=== PATIENT | male | born 1970 | race Caucasian/White ===

== ENCOUNTER 2022-03-10 00:25 | Emergency (ER) | payer BC, OTHER ==
[~2022-03-10] VITALS: Ht 180.3 cm; Wt 106.6 kg
--- NOTE | 2022-03-10 00:55 | NUR ---
Dr. Wei at bedside for MSE.
--- NOTE | 2022-03-10 01:47 | NUR ---
Patient discharged to home in stable condition. Written and verbal after care instructions given. Patient verbalizes understanding of instructions. Stressed follow up or return to ER for worsening s/s. Patient out of ER with steady gait, no acute signs of distress, VSS, all belongings taken.
[2022-03-10 01:48] VITALS: BP 145/82
== END 2022-03-10 01:50 | disposition home or self-care (01) ==
LOC: ER 01:18
DX: S67.193A Crushing injury of left middle finger, initial encounter (principal); W23.0XXA Caught, crushed, jammed, or pinched between moving objects, initial encounter; Y93.F9 Activity, other caregiving; Y92.230 Patient room in hospital as the place of occurrence of the external cause; Y99.0 Civilian activity done for income or pay; E11.9 Type 2 diabetes mellitus without complications; H91.90 Unspecified hearing loss, unspecified ear; Z88.0 Allergy status to penicillin; R03.0 Elevated blood-pressure reading, without diagnosis of hypertension
CPT/HCPCS: 73140; A4663

== ENCOUNTER 2024-05-28 05:49 | Inpatient (IN) | payer OTHER ==
[~2024-05-28] VITALS: Ht 180.3 cm; Wt 88.5 kg
[2024-05-28] MEDS ORDERED: VANCOMYCIN IV 500 MG in IV DEXTROSE 5% 100 ML IV ONE (06:45)
[2024-05-28] MEDS ORDERED: VANCOMYCIN IV 200 ML ONE (06:46)
[2024-05-28 06:53] LABS: BASOPHILS # (AUTO) 0.1 K/UL (0.0-0.2); BASOPHILS % (AUTO) 1.1 % (0.0-2.0); EOSINOPHILS # (AUTO) 0.3 K/uL (0.0-0.7); EOSINOPHILS % (AUTO) 2.6 % (0.0-7.0); HEMATOCRIT 42.7 % (36.7-47.1); HEMOGLOBIN 14.4 g/dL (12.5-16.3); LYMPHOCYTES # (AUTO) 2.8 K/uL (0.8-4.8); MEAN CORPUSCULAR HEMOGLOBIN 29.6 uug (23.8-33.4); MEAN CORPUSCULAR HGB CONC 34 g/dL (32.5-36.3); MEAN CORPUSCULAR VOLUME 87.9 fL (73.0-96.2); MONOCYTES % (AUTO) 8.7 % (0.0-11.0); NEUTROPHILS % (AUTO) 62.6 % (38.5-71.5); PLATELET COUNT (AUTO) 389 K/uL (152-348); RED BLOOD CELL COUNT(AUTO) 4.85 MIL/uL (4.06-5.63); RED CELL DISTRIBUTION WIDTH 13.1 % (12.1-16.2); WHITE BLOOD COUNT (AUTO) 11.1 K/uL (3.6-10.2)
[2024-05-28] MEDS: VANCOMYCIN IV 1,000 MG in IV DEXTROSE 5% 250 ML IV ONE (07:02)
[2024-05-28 07:13] LABS: ALBUMIN 3.2 g/dL (3.4-5.0); BILIRUBIN,TOTAL 0.3 mg/dL (0.2-1.0); CALCIUM 9.9 mg/dL (8.5-10.1); CREATININE 0.9 mg/dL (0.6-1.3); POTASSIUM 4.4 mmol/L (3.5-5.1)
[2024-05-28] MEDS ORDERED: DOXYCYCLINE HYCLATE 100 MG TABLET ONE (07:16)
[2024-05-28] MEDS: DOXYCYCLINE HYCLATE 100 MG TABLET PO ONE (07:17)
[2024-05-28] MEDS ORDERED: IOHEXOL 300MG/ML 100 ML INFUS..BTL ONE (07:22)
[2024-05-28] MEDS ORDERED: SWABABLE VALVE TRANSFER SET EA MC ONE (07:22)
[2024-05-28] MEDS ORDERED: IV NORMAL SALINE 250 ML IV ONE (07:22)
[2024-05-28 07:40] LABS: C-REACTIVE PROTEIN 1.25 mg/dL (0.00-0.30)
[2024-05-28 07:42] LABS: DIFFERENTIAL COMMENT 1
[2024-05-28 08:03] LABS: LACTIC ACID 2.1 mmol/L (0.4-2.0)
[2024-05-28] MEDS ORDERED: METFORMIN HCL 500 MG TABLET PO ONE (08:15)
[2024-05-28] MEDS ORDERED: METFORMIN HCL 500 MG TABLET ONE (08:25)
[2024-05-28] MEDS: IV NORMAL SALINE 1000 ML BAG IV ONE (08:57)
[2024-05-28] MEDS: HUM INSULIN NPH/REG INSULIN HM 70/30 1000 UNITS/10 ML VIAL SQ ONE (09:22)
[2024-05-28] MEDS ORDERED: ONDANSETRON 4 MG/2 ML VIAL IV PRN (10:30)
[2024-05-28] MEDS ORDERED: REMEDY ESSENTIAL ZINC PASTE 113 GM TP PRN (10:30)
[2024-05-28] MEDS ORDERED: DEXTROSE 50% 50 ML DISP.SYRIN IV PRN (10:30)
[2024-05-28] MEDS ORDERED: ACETAMINOPHEN 325 MG TABLET PO PRN (10:30)
[2024-05-28] MEDS ORDERED: MAGNESIUM HYDROXIDE 30 ML LIQUID UDC PO PRN (10:30)
[2024-05-28 11:09] VITALS: BP 141/87; TEMP 97.7; O2SAT 97
[2024-05-28] MEDS: BLOOD SUGAR DIAGNOSTIC 1 EACH STRIP VI SCH (11:39)
[2024-05-28] MEDS: IV NS 1000 ML 1,000 ML IV PRN (11:40)
[2024-05-28] MEDS: INSULIN REGULAR, HUMAN 300 UNIT/3 ML VIAL SQ PRN (11:49)
[2024-05-28] MEDS: HYDROCODONE/APAP 10-325 MG TABLET PO PRN (12:16)
[2024-05-28] MEDS: CEFEPIME HCL 1 G in IV DEXTROSE 5% 50 ML IV SCH (14:11)
[2024-05-28 16:06] VITALS: BP 120/62; TEMP 97.5; O2SAT 98
[2024-05-28] MEDS: SODIUM HYPOCHLORITE 0.125% (QUARTER STRENGTH) 473 ML BOTTLE TP SCH (16:14)
[2024-05-28] MEDS ORDERED: PIPERACILLIN SODIUM/TAZOBACTAM 3.375 G in IV DEXTROSE 5% 50 ML IV SCH (18:00)
[2024-05-28 19:46] VITALS: BP 128/79; TEMP 98; O2SAT 96
[2024-05-29 05:40] VITALS: BP 146/92; TEMP 97.9; O2SAT 97
[2024-05-29 07:26] LABS: BASOPHILS # (AUTO) 0.1 K/UL (0.0-0.2); BASOPHILS % (AUTO) 0.7 % (0.0-2.0); EOSINOPHILS # (AUTO) 0.2 K/uL (0.0-0.7); EOSINOPHILS % (AUTO) 2.6 % (0.0-7.0); HEMATOCRIT 41.7 % (36.7-47.1); HEMOGLOBIN 14.1 g/dL (12.5-16.3); LYMPHOCYTES # (AUTO) 2.6 K/uL (0.8-4.8); LYMPHOCYTES % (AUTO) 28.5 % (20.5-51.5); MEAN CORPUSCULAR HEMOGLOBIN 29.6 uug (23.8-33.4); MEAN CORPUSCULAR HGB CONC 34 g/dL (32.5-36.3); MEAN CORPUSCULAR VOLUME 87.3 fL (73.0-96.2); MONOCYTES # (AUTO) 0.7 K/uL (0.1-1.30); MONOCYTES % (AUTO) 7.4 % (0.0-11.0); NEUTROPHILS # (AUTO) 5.5 K/uL (1.8-8.9); NEUTROPHILS % (AUTO) 60.8 % (38.5-71.5); PLATELET COUNT (AUTO) 374 K/uL (152-348); RED BLOOD CELL COUNT(AUTO) 4.78 MIL/uL (4.06-5.63); WHITE BLOOD COUNT (AUTO) 9.1 K/uL (3.6-10.2)
[2024-05-29 07:35] LABS: DIFFERENTIAL COMMENT 1
[2024-05-29 07:38] LABS: CALCIUM 9.2 mg/dL (8.5-10.1); CREATININE 0.7 mg/dL (0.6-1.3); PHOSPHOROUS 2.9 mg/dL (2.5-4.9); POTASSIUM 3.3 mmol/L (3.5-5.1)
[2024-05-29] MEDS: POTASSIUM CHLORIDE 20 MEQ TAB.PRT.SR PO ONE (10:53)
[2024-05-29 11:30] VITALS: BP 137/74; TEMP 98.2; O2SAT 96
[2024-05-29 15:38] VITALS: BP 133/74; TEMP 98.5; O2SAT 95
[2024-05-29 16:54] LABS: CALCIUM 9.3 mg/dL (8.5-10.1); CREATININE 0.8 mg/dL (0.6-1.3); MAGNESIUM 2.1 mg/dL (1.8-2.4); PHOSPHOROUS 3.2 mg/dL (2.5-4.9); POTASSIUM 3.6 mmol/L (3.5-5.1); URIC ACID 4.7 mg/dL (3.5-7.2)
[2024-05-29 17:03] LABS: THYROID STIMULATING HORMONE 1.106 mIU/mL (0.358-3.740)
[2024-05-29 20:00] VITALS: BP 121/43; TEMP 97.9; O2SAT 95
[2024-05-29] MEDS: SODIUM HYPOCHLORITE 0.125% (QUARTER STRENGTH) 473 ML BOTTLE TP SCH (20:47)
[2024-05-29 21:34] LABS: *SODIUM RNDM,URINE 143 mmol/L (40-220)
[2024-05-30 04:43] VITALS: BP 135/85; TEMP 97.4; O2SAT 98
[2024-05-30 07:24] LABS: BASOPHILS # (AUTO) 0.1 K/UL (0.0-0.2); BASOPHILS % (AUTO) 0.8 % (0.0-2.0); EOSINOPHILS # (AUTO) 0.3 K/uL (0.0-0.7); EOSINOPHILS % (AUTO) 3.8 % (0.0-7.0); HEMATOCRIT 41.7 % (36.7-47.1); HEMOGLOBIN 14.2 g/dL (12.5-16.3); LYMPHOCYTES # (AUTO) 2.8 K/uL (0.8-4.8); LYMPHOCYTES % (AUTO) 30.2 % (20.5-51.5); MEAN CORPUSCULAR HEMOGLOBIN 29.8 uug (23.8-33.4); MEAN CORPUSCULAR HGB CONC 34 g/dL (32.5-36.3); MEAN CORPUSCULAR VOLUME 87.8 fL (73.0-96.2); MONOCYTES # (AUTO) 0.8 K/uL (0.1-1.30); MONOCYTES % (AUTO) 8.3 % (0.0-11.0); NEUTROPHILS # (AUTO) 5.2 K/uL (1.8-8.9); NEUTROPHILS % (AUTO) 56.9 % (38.5-71.5); PLATELET COUNT (AUTO) 395 K/uL (152-348); RED BLOOD CELL COUNT(AUTO) 4.75 MIL/uL (4.06-5.63); WHITE BLOOD COUNT (AUTO) 9.1 K/uL (3.6-10.2)
[2024-05-30 07:29] LABS: DIFFERENTIAL COMMENT 1
[2024-05-30 07:44] LABS: CALCIUM 9.3 mg/dL (8.5-10.1); CREATININE 0.7 mg/dL (0.6-1.3); POTASSIUM 3.6 mmol/L (3.5-5.1)
[2024-05-30 11:23] VITALS: BP 122/67; TEMP 97.5; O2SAT 98
[2024-05-30 15:50] VITALS: BP 145/45; TEMP 97.9; O2SAT 95
[2024-05-30] MEDS: CEFEPIME HCL 2 GM in IV DEXTROSE 5% 100 ML IV SCH (17:05)
[2024-05-30 20:00] VITALS: BP 143/84; TEMP 98.9; O2SAT 96
[2024-05-30] MEDS: INSULIN REGULAR, HUMAN 300 UNITS/3 ML VIAL SQ PRN (21:07)
[2024-05-31 06:07] VITALS: BP 143/80; TEMP 98.5; O2SAT 95
[2024-05-31 07:06] LABS: BASOPHILS # (AUTO) 0.1 K/UL (0.0-0.2); BASOPHILS % (AUTO) 0.9 % (0.0-2.0); EOSINOPHILS # (AUTO) 0.3 K/uL (0.0-0.7); EOSINOPHILS % (AUTO) 3.2 % (0.0-7.0); HEMOGLOBIN 14.9 g/dL (12.5-16.3); LYMPHOCYTES # (AUTO) 2.7 K/uL (0.8-4.8); LYMPHOCYTES % (AUTO) 28.1 % (20.5-51.5); MEAN CORPUSCULAR HEMOGLOBIN 29.8 uug (23.8-33.4); MEAN CORPUSCULAR HGB CONC 34 g/dL (32.5-36.3); MEAN CORPUSCULAR VOLUME 87.8 fL (73.0-96.2); MONOCYTES # (AUTO) 0.7 K/uL (0.1-1.30); MONOCYTES % (AUTO) 6.8 % (0.0-11.0); PLATELET COUNT (AUTO) 399 K/uL (152-348); RED BLOOD CELL COUNT(AUTO) 5.01 MIL/uL (4.06-5.63); WHITE BLOOD COUNT (AUTO) 9.7 K/uL (3.6-10.2)
[2024-05-31 07:13] LABS: DIFFERENTIAL COMMENT 1
[2024-05-31 07:42] LABS: CALCIUM 9.1 mg/dL (8.5-10.1); CREATININE 0.9 mg/dL (0.6-1.3); POTASSIUM 3.8 mmol/L (3.5-5.1)
[2024-05-31] MEDS ORDERED: INSU100V7 SQ (10:11)
[2024-05-31] MEDS ORDERED: LINE600T15 PO (10:11)
[2024-05-31] MEDS ORDERED: SYRI-614 SUBCUT (10:11)
[2024-05-31] MEDS ORDERED: [UNRECOGNIZED DRUG - CODE] MC (10:11)
[2024-05-31] MEDS ORDERED: ISOP1TOW MC (10:11)
[2024-05-31] MEDS ORDERED: METF-440 PO (10:11)
[2024-05-31] MEDS ORDERED: [UNRECOGNIZED DRUG - CODE] TP (10:11)
[2024-05-31] MEDS ORDERED: POVI30SO OP (10:49)
[2024-05-31] MEDS ORDERED: BISM1BAN TP (10:49)
[2024-05-31] MEDS ORDERED: SODI473S8 MC (10:49)
[2024-05-31] MEDS ORDERED: HYDR-3980 PO (14:49)
[2024-05-31] MEDS ORDERED: PROTEIN SUPPLEMENT (PROSTAT) 30 ML LIQUID PO SCH (17:00)
== END 2024-05-31 16:30 | disposition home health service (06) | DRG 580 ==
LOC: ER 06:01 → MEDSURG3 10:37
PROVIDERS: ADMIT Nurse Practitioner Acute Care; ATTEND Nurse Practitioner Acute Care
PROC: 0KBT0ZZ Excision of Left Lower Leg Muscle, Open Approach (ICD-10-PCS; principal; 2024-05-28)
DX: L03.116 Cellulitis of left lower limb (principal); E44.1 Mild protein-calorie malnutrition; E87.20 Acidosis, unspecified; E87.1 Hypo-osmolality and hyponatremia; L97.223 Non-pressure chronic ulcer of left calf with necrosis of muscle; E11.65 Type 2 diabetes mellitus with hyperglycemia; L02.416 Cutaneous abscess of left lower limb; E11.622 Type 2 diabetes mellitus with other skin ulcer; S80.862S Insect bite (nonvenomous), left lower leg, sequela; E11.621 Type 2 diabetes mellitus with foot ulcer; E87.6 Hypokalemia; L97.521 Non-pressure chronic ulcer of other part of left foot limited to breakdown of skin; B95.61 Methicillin susceptible Staphylococcus aureus infection as the cause of diseases classified elsewhere; W57.XXXS Bitten or stung by nonvenomous insect and other nonvenomous arthropods, sequela; E11.42 Type 2 diabetes mellitus with diabetic polyneuropathy; E88.09 Other disorders of plasma-protein metabolism, not elsewhere classified; Z68.27 Body mass index [BMI] 27.0-27.9, adult; H91.93 Unspecified hearing loss, bilateral; Z91.148 Patient's other noncompliance with medication regimen for other reason; Z88.0 Allergy status to penicillin; Z79.84 Long term (current) use of oral hypoglycemic drugs; E86.9 Volume depletion, unspecified
CPT/HCPCS: 36415; 82533; 83605; 83735; 84100; 84300; 84443; 84550; 85025; 86140; 87040; A4663; G0378; J0692; J1815; J3370; J7040; Q9967

== ENCOUNTER 2025-09-14 19:32 | Inpatient (IN) | payer BC, OTHER ==
[~2025-09-14] VITALS: Ht 180.3 cm; Wt 74.8 kg
[2025-09-14 19:32] VITALS: BP 113/77
[~2025-09-14 19:32] MED LIST: BISM1BAN TP; HYDR-3980 PO; INSU100V7 SQ; ISOP1TOW MC; LINE600T15 PO; METF-440 PO; POVI30SO OP; SODI473S8 MC; SYRI-614 SUBCUT; [UNRECOGNIZED DRUG - CODE] MC; [UNRECOGNIZED DRUG - CODE] TP
[2025-09-14] MEDS ORDERED: LOSA50TA39 PO (20:28)
[2025-09-14] MEDS ORDERED: insulin SUBCUT (20:54)
[2025-09-14 21:06] LABS: *BILIRUBIN,URIN 1+ (NEGATIVE); *BLOOD, URINE NEGATIVE (NEGATIVE); *CLARITY,URINE CLEAR (CLEAR); *COLOR,URINE YELLOW (YELLOW); *KETONES,URINE 3+ (NEGATIVE); *PROTEIN,URINE 2+ (NEGATIVE); *UROBILINOGEN,URINE 0.2 E.U./dl (NORMAL); LEUKOCYTE ESTERASE ,URINE NEGATIVE (NEGATIVE); NITRITE, URINE NEGATIVE (NEGATIVE); UGLUCOSE 2+ (NEGATIVE)
[2025-09-14 21:13] LABS: CREATININE 1.0 mg/dL (0.6-1.3); SODIUM SERUM 130 mmol/L (136-145); UREA NITROGEN, BLOOD 22 mg/dL (7-18)
[2025-09-14 21:15] LABS: PLATELET COUNT (AUTO) 426 K/uL (152-348); RED BLOOD CELL COUNT(AUTO) 5.29 MIL/uL (4.06-5.63); RED CELL DISTRIBUTION WIDTH 13.2 % (12.1-16.2); WHITE BLOOD COUNT (AUTO) 25.5 K/uL (3.6-10.2)
[2025-09-14 21:18] LABS: TOTAL PROTEIN, SERUM 8.2 g/dL (6.4-8.2)
[2025-09-14 21:19] LABS: *AMPHETAMINE, URINE NEGATIVE (NEGATIVE); *BARBITURATE, URINE NEGATIVE (NEGATIVE); *BENZODIAZEPINE, URINE NEGATIVE (NEGATIVE); *CANNABINOID, URINE NEGATIVE (NEGATIVE); *COCCAINE, URINE NEGATIVE (NEGATIVE); *OPIATE, URINE NEGATIVE (NEGATIVE); *PHENCYCLIDINE SCREEN,URINE NEGATIVE (NEGATIVE); FENTANYL, URINE NEGATIVE (NEGATIVE)
[2025-09-14 21:29] LABS: ASPARTATE AMINOTRANSFERASE 9 U/L (15-37)
[2025-09-14 21:40] LABS: SQUAMOUS EPITHELIAL CELL,UR NONE SEEN /HPF (NONE SEEN)
[2025-09-14] MEDS ORDERED: MORPHINE SULFATE 4 MG/1 ML DISP.SYRIN ONE (22:06)
[2025-09-14] MEDS: MORPHINE SULFATE 4 MG/1 ML DISP.SYRIN IV ONE (22:12)
[2025-09-14] MEDS ORDERED: ONDANSETRON 4 MG/2 ML VIAL IV PRN (23:30)
[2025-09-14] MEDS ORDERED: MAGNESIUM HYDROXIDE 30 ML LIQUID UDC PO PRN (23:30)
[2025-09-14] MEDS ORDERED: DEXTROSE 50% 50 ML DISP.SYRIN IV PRN (23:30)
[2025-09-14] MEDS ORDERED: PIPERACILLIN/TAZOBACTAM/D5W 50 ML IV ONE (23:36)
[2025-09-14] MEDS: PIPERACILLIN SODIUM/TAZOBACTAM 3.375 G in IV DEXTROSE 5% 50 ML IV SCH (23:57)
[2025-09-14] MEDS: IV NS 1000 ML 1,000 ML IV ONE (23:57)
[2025-09-15] MEDS: IV NS 1000 ML 1,000 ML IV ONE
[2025-09-15 01:15] VITALS: BP 152/81; TEMP 100; O2SAT 98
[2025-09-15] MEDS: IV NS 1000 ML 1,000 ML IV PRN (01:27)
[2025-09-15] MEDS: ACETAMINOPHEN 325 MG TABLET PO PRN (01:41)
[2025-09-15] MEDS: ENOXAPARIN SODIUM 40 MG/0.4 ML DISP.SYRIN SQ SCH ×2 (01:50→20:17)
[2025-09-15] MEDS ORDERED: PIPERACILLIN/TAZOBACTAM/D5W 50 ML IV ONE (02:23)
[2025-09-15] MEDS ORDERED: VANCOMYCIN 1000 MG VIAL ONE (02:24)
[2025-09-15] MEDS ORDERED: VANCOMYCIN HCL 500 MG VIAL ONE (02:25)
[2025-09-15] MEDS: VANCOMYCIN IV 1,250 MG in IV NORMAL SALINE 250 ML IV ONE (02:38)
[2025-09-15] MEDS ORDERED: PIPERACILLIN SODIUM/TAZOBACTAM 3.375 G in IV NORMAL SALINE 50 ML IV ONE (04:00)
[2025-09-15 04:47] VITALS: BP 118/72; TEMP 98.6; O2SAT 95
[2025-09-15] MEDS: PIPERACILLIN SODIUM/TAZOBACTAM 3.375 G in IV NORMAL SALINE 50 ML IV ONE (05:00)
[2025-09-15] MEDS: BLOOD SUGAR DIAGNOSTIC 1 EACH STRIP VI SCH (06:32)
[2025-09-15 07:14] LABS: PLATELET COUNT (AUTO) 375 K/uL (152-348); RED BLOOD CELL COUNT(AUTO) 4.80 MIL/uL (4.06-5.63); RED CELL DISTRIBUTION WIDTH 12.9 % (12.1-16.2); WHITE BLOOD COUNT (AUTO) 22.6 K/uL (3.6-10.2)
[2025-09-15 07:40] LABS: CREATININE 0.8 mg/dL (0.6-1.3); SODIUM SERUM 135.0 mmol/L (136-145); UREA NITROGEN, BLOOD 18.0 mg/dL (7-18)
[2025-09-15 08:38] LABS: NEUTROPHILS % (MANUAL) 81 % (42-75)
[2025-09-15 08:39] LABS: LYMPHOCYTES % (MANUAL) 10 % (20-40); MONOCYTES % (MANUAL) 9 % (2-10); PLATELET ESTIMATE INCREASED
[2025-09-15] MEDS: VANCOMYCIN IV 1,000 MG in IV DEXTROSE 5% 250 ML IV SCH (08:43)
[2025-09-15] MEDS: METFORMIN HCL 500 MG TABLET PO SCH ×2 (08:43→17:10)
[2025-09-15] MEDS: LOSARTAN POTASSIUM 50 MG TABLET PO SCH (08:43)
[2025-09-15] MEDS: INSULIN REGULAR, HUMAN 1000 UNIT/10 ML VIAL SQ PRN (08:53)
[2025-09-15 11:42] VITALS: BP 127/70; TEMP 98.9; O2SAT 94
[2025-09-15] MEDS: PIPERACILLIN SODIUM/TAZOBACTAM 3.375 G in IV DEXTROSE 5% 50 ML IV SCH (11:44)
[2025-09-15 15:58] VITALS: BP 105/61; TEMP 99.1; O2SAT 96
[2025-09-15 20:00] VITALS: BP 128/78; TEMP 98.5; O2SAT 95
[2025-09-15 22:05] LABS: HIV-1/2 ANTIBODY NON REACTIVE (NONREACTIVE)
[2025-09-15] MEDS: ZOLPIDEM 5 MG TABLET PO PRN (22:08)
[2025-09-16 05:00] VITALS: BP 124/77; TEMP 98.5; O2SAT 94
[2025-09-16 07:21] LABS: PLATELET COUNT (AUTO) 369 K/uL (152-348); RED BLOOD CELL COUNT(AUTO) 4.32 MIL/uL (4.06-5.63); RED CELL DISTRIBUTION WIDTH 12.8 % (12.1-16.2); WHITE BLOOD COUNT (AUTO) 18.9 K/uL (3.6-10.2)
[2025-09-16 07:27] LABS: CREATININE 0.7 mg/dL (0.6-1.3); SODIUM SERUM 136.0 mmol/L (136-145); UREA NITROGEN, BLOOD 11.0 mg/dL (7-18)
[2025-09-16] MEDS: VANCOMYCIN IV 1,250 MG in IV DEXTROSE 5% 250 ML IV SCH (09:41)
[2025-09-16] MEDS: MORPHINE SULFATE 2 MG/1 ML DISP.SYRIN IV PRN (10:02)
[2025-09-16] MEDS ORDERED: BREX1TAB PO (11:05)
[2025-09-16] MEDS: POTASSIUM CHLORIDE 20 MEQ TAB.PRT.SR PO ONE (11:08)
[2025-09-16] MEDS ORDERED: FERR-68 PO (11:10)
[2025-09-16 11:16] VITALS: BP 135/82; TEMP 98; O2SAT 93
[2025-09-16] MEDS: PROTEIN SUPPLEMENT (PROSTAT) 30 ML LIQUID PO SCH (12:27)
[2025-09-16 14:56] VITALS: BP 117/69; TEMP 99; O2SAT 94
[2025-09-16] MEDS: ARGININE/GLUTAMINE/CALCIUM BMB 1 EACH POWD.PACK PO SCH (16:08)
[2025-09-16 19:34] VITALS: BP 134/82; TEMP 98.7; O2SAT 94
[2025-09-16] MEDS: TEMAZEPAM 7.5 MG CAPSULE PO PRN (22:27)
[2025-09-17 05:34] VITALS: BP 139/86; TEMP 98.1; O2SAT 94
[2025-09-17 11:12] LABS: PLATELET COUNT (AUTO) 431 K/uL (152-348); RED BLOOD CELL COUNT(AUTO) 4.99 MIL/uL (4.06-5.63); RED CELL DISTRIBUTION WIDTH 12.7 % (12.1-16.2); WHITE BLOOD COUNT (AUTO) 16.3 K/uL (3.6-10.2)
[2025-09-17 11:15] VITALS: BP 120/63; TEMP 97.8; O2SAT 97
[2025-09-17 11:15] LABS: CREATININE 0.9 mg/dL (0.6-1.3); SODIUM SERUM 138.0 mmol/L (136-145); UREA NITROGEN, BLOOD 15.0 mg/dL (7-18)
[2025-09-17 15:44] VITALS: BP 124/74; TEMP 98.6; O2SAT 98
[2025-09-17 19:20] VITALS: BP 131/82; TEMP 98.2; O2SAT 96
[2025-09-18 06:02] VITALS: BP 128/79; TEMP 97.6; O2SAT 97
[2025-09-18 07:34] LABS: PLATELET COUNT (AUTO) 461 K/uL (152-348); RED BLOOD CELL COUNT(AUTO) 4.62 MIL/uL (4.06-5.63); RED CELL DISTRIBUTION WIDTH 13.1 % (12.1-16.2); WHITE BLOOD COUNT (AUTO) 15.3 K/uL (3.6-10.2)
[2025-09-18 07:41] LABS: CREATININE 0.8 mg/dL (0.6-1.3); SODIUM SERUM 139.0 mmol/L (136-145); UREA NITROGEN, BLOOD 16.0 mg/dL (7-18)
[2025-09-18 11:28] VITALS: BP 120/61; TEMP 97.6; O2SAT 94
[2025-09-18 16:19] VITALS: BP 114/74; TEMP 98.1; O2SAT 94
[2025-09-18 20:00] VITALS: BP 129/79; TEMP 98.1; O2SAT 96
[2025-09-19 06:24] VITALS: BP 124/82; TEMP 98.4; O2SAT 98
[2025-09-19 11:52] VITALS: BP 118/63; TEMP 98; O2SAT 94
[2025-09-19] MEDS: LIDOCAINE 2%-EPI 1:100,000 20 ML VIAL IJ STA (13:13)
[2025-09-19] MEDS ORDERED: DEXTROSE 50% 50 ML DISP.SYRIN IV PRN (15:30)
[2025-09-19] MEDS ORDERED: LINE600T12 PO (15:36)
[2025-09-19 16:00] VITALS: BP 124/76; TEMP 97.8; O2SAT 97
[2025-09-19] MEDS: BLOOD SUGAR DIAGNOSTIC 1 EACH STRIP VI SCH (16:42)
[2025-09-19] MEDS: INSULIN REGULAR, HUMAN 1000 UNIT/10 ML VIAL SQ PRN (17:33)
[2025-09-19] MEDS: INSULIN REGULAR, HUMAN 300 UNITS/3 ML VIAL SQ PRN (21:13)
[2025-09-19 21:20] VITALS: BP 127/80; TEMP 98.6; O2SAT 93
[2025-09-20 05:59] VITALS: BP 109/57; TEMP 98.1; O2SAT 96
[2025-09-20 06:46] LABS: PLATELET COUNT (AUTO) 504 K/uL (152-348); RED BLOOD CELL COUNT(AUTO) 5.08 MIL/uL (4.06-5.63); RED CELL DISTRIBUTION WIDTH 12.8 % (12.1-16.2); WHITE BLOOD COUNT (AUTO) 10.5 K/uL (3.6-10.2)
[2025-09-20 07:17] LABS: CREATININE 0.9 mg/dL (0.6-1.3); SODIUM SERUM 137.0 mmol/L (136-145); UREA NITROGEN, BLOOD 20.0 mg/dL (7-18)
[2025-09-20] MEDS: SODIUM HYPOCHLORITE 0.125% (QUARTER STRENGTH) 473 ML BOTTLE TP SCH (08:31)
[2025-09-20] MEDS: MUPIROCIN 2% OINT 22 GM TUBE TP SCH (08:31)
[2025-09-20] MEDS ORDERED: ISOP1TOW MC (11:40)
[2025-09-20] MEDS ORDERED: [UNRECOGNIZED DRUG - CODE] MC (11:40)
[2025-09-20] MEDS ORDERED: LINE600T12 PO (11:40)
[2025-09-20] MEDS ORDERED: INSU300I12 SQ (11:40)
[2025-09-20 11:52] VITALS: BP 123/65; TEMP 97.8; O2SAT 98
== END 2025-09-20 13:06 | disposition home or self-care (01) | DRG 854 ==
LOC: ER 19:36 → MEDSURG3 21:49
PROVIDERS: ADMIT Nurse Practitioner Acute Care; ATTEND Nurse Practitioner Acute Care
PROC: 0KBS0ZZ Excision of Right Lower Leg Muscle, Open Approach (ICD-10-PCS; principal; 2025-09-19)
DX: A41.9 Sepsis, unspecified organism (principal); E44.0 Moderate protein-calorie malnutrition; L03.115 Cellulitis of right lower limb; L02.415 Cutaneous abscess of right lower limb; B95.61 Methicillin susceptible Staphylococcus aureus infection as the cause of diseases classified elsewhere; B95.0 Streptococcus, group A, as the cause of diseases classified elsewhere; E11.622 Type 2 diabetes mellitus with other skin ulcer; I10 Essential (primary) hypertension; L97.113 Non-pressure chronic ulcer of right thigh with necrosis of muscle; L97.828 Non-pressure chronic ulcer of other part of left lower leg with other specified severity; L97.818 Non-pressure chronic ulcer of other part of right lower leg with other specified severity; E87.1 Hypo-osmolality and hyponatremia; E83.52 Hypercalcemia; Z68.23 Body mass index [BMI] 23.0-23.9, adult; E11.65 Type 2 diabetes mellitus with hyperglycemia; R26.2 Difficulty in walking, not elsewhere classified; E86.0 Dehydration; E88.09 Other disorders of plasma-protein metabolism, not elsewhere classified; H91.93 Unspecified hearing loss, bilateral; Z88.0 Allergy status to penicillin; Z79.84 Long term (current) use of oral hypoglycemic drugs; Z79.899 Other long term (current) drug therapy
CPT/HCPCS: 36415; 70030-TC; 70450; 71045; 83605; 83735; 84100; 84484; 85025; 85730; 86803; 87040; 87070; 87077; 87806; G0378; J1650; J1815; J2270; J2543; J3373; J7040; J7050